=== PATIENT | male | born 1965 | race African-American/Black ===

== ENCOUNTER 2019-10-16 18:29 | Emergency (ER) | payer SELFPAY ==
[~2019-10-16] VITALS: Ht 180.3 cm; Wt 70.5 kg
[~2019-10-16 18:29] MED LIST: NO HOME MEDICATIONS
[2019-10-16 18:35] VITALS: TEMP 98.2
[2019-10-16] MEDS ORDERED: NORVASC 5MG5 MG/TAB PO (19:06)
[2019-10-16 19:30] VITALS: BP 140/101; PULSE 92
== END 2019-10-16 19:30 | disposition home or self-care (01) ==
LOC: COL.ER 18:29
DX: R04.0 Epistaxis (principal); I10 Essential (primary) hypertension